=== PATIENT | male | born 1980 | race Caucasian/White ===

== ENCOUNTER 2023-12-26 14:30 | Outpatient (RCR) | payer BC, MEDICAID, SELFPAY | END 2024-04-24 23:59 | disposition home or self-care (01) | PROVIDERS: Visit Provider Family Medicine | DX: M54.9 Dorsalgia, unspecified (principal); Z51.89 Encounter for other specified aftercare | CPT/HCPCS: 97110; 97161; 97530 ==

== ENCOUNTER 2024-11-11 03:50 | Emergency (ER) | payer BC, MEDICAID, SELFPAY ==
[2024-11-11 03:56] VITALS: BP 125/85; PULSE 76; RESP 16; TEMP 36.6; O2SAT 98; BMI 27.0
--- NOTE | 2024-11-11 04:23 | ED_ITS ---
HPI - General Adult General Chief complaint: Back Injury/Pain Stated complaint: lower back pain Time Seen by Provider: 11/11/24 04:06 Source: patient Mode of arrival: ambulatory Limitations: no limitations History of Present Illness HPI narrative: 44-year-old male presents the emergency department with several-day history of lumbar back pain. He awoke in the middle of the night with the pain and had difficulty falling back asleep and decided to come to the emergency department. Tried taking 600 mg of ibuprofen with minimal relief. Has not tried Tylenol. Seem to strain things while shoveling snow a few days ago. No radiculopathy, no loss of bowel or bladder function, no weakness in the legs. No prior history of back surgery. No numbness or tingling. He points to the area around L2/L3 and slightly off to the left as the maximum area of pain. Note trauma or injury. No fever, no other affected areas. Has not previously been evaluated for this by a medical provider but does regularly follow with a chiropractor. Reports that he had an adjustment yesterday which helped a little bit. No prior history of imaging. Past medical history he reports is benign, no major long-term health problems. No long-term prescriptions. Does smoke and does use marijuana weekly or so. ROS is notable for the musculoskeletal symptoms as above, otherwise denies times 12 systems. Related Data Home Medications ?Medication ?Instructions ?Recorded ?Confirmed No Known Home Medications 11/11/24 11/11/24 Allergies Allergy/AdvReac Type Severity Reaction Status Date / Time No Known Drug Allergies Allergy Verified 04/23/24 15:09 PFSH PFS Family History Father Thyroid cancer Diabetes, Onset Age: 52 Social History Smoking Status: Never smoker Do you use any of these nicotine containing products: None Non-prescribed substance use: denies use Exam Const: Vital Signs, click to edit/add: Vital Signs - 24 hr 11/11/24 03:56 Temperature 97.9 F Pulse Rate [Pulse Oximeter] 76 Respiratory Rate 16 Blood Pressure [Le ft Upper Arm] 125/85 Pulse Oximetry 98 Oxygen Delivery Me thod Room Air Documenting provider has reviewed patient's vital signs: yes Common normals: no apparent distress and alert General appearance: cooperative and well kempt HENMT: Common normals: normocephalic Head and scalp: normocephalic Eye: General eye: normal appearance of both eyes Neck & C-Spine: General: normal visual inspection Chest: Common normals: inspection of chest normal Resp: Common normals: normal respiratory effort and no use of accessory muscles Effort & inspection: able to speak in complete sentences : Common normals: no CVA tenderness Bladder/kidney exam: no CVA tenderness Back & Pelvis: Common normals: no CVA tenderness Other: Slight loss of typical lumbar lordosis. No other deformity. There is no point bony tenderness over the spine, mild tenderness over the left paraspinal muscles especially around L2-L3 noted. No SI tenderness. Pain is worsened with extension. He has excellent flexion. Spondylosis testing weakly positive on the left, normal on the right. Straight leg lift negative bilaterally. Normal sensation in both legs, normal strength to flexion, extension at the feet, lower and upper legs. Normal muscle tone. Extremity: Common normals: normal to inspection and no joint enlargement Neuro: Sensorium/orientation: alert Gait (neuro): normal gait Motor exam: strength 5/5 throughout and no movement abnormalities noted Psych: Appearance: well kempt Activity/motor behavior: appropriate eye contact Insight: insight good Judgement: judgment good Skin: Common normals: no rashes or lesions noted General skin exam: no rashes or lesions noted Course Course ED Course: Counseled patient on findings. Does not meet criteria for imaging. Suspect strain. Chronicity of symptoms and onset does not give suspicion for intra- abdominal etiology, kidney stone, etc.. No signs of rash or shingles. No radicular type symptoms or neurological compromise. Patient does want to be able to drive himself home, will give scripts from [facility]. Counseled on prednisone 20 mg p.o. b.i.d. for 5 days, will start in the daylight hour. Flexeril 10 mg b.i.d. p.r.n., will take a doses soon as gets home. Toradol 10 mg up to q.i.d. p.r.n., will take a doses soon as he gets home. Counseled on Tylenol 1000 mg q.6 p.r.n. as well. Counseled that he may also use [id number] sleep aids like melatonin or E or Unisom. Continue with chiropractor. If symptoms have not improved markedly within the next few days, would recommend starting physical therapy and then primary care follow-up in a few weeks if not improving as expected for imaging and additional workup. Patient verbalized understanding and agreement. The alarm symptoms that would warrant ED presentation are reviewed with him. Written instructions provided. Vital Signs Vital signs: Initial Vital Signs Temperature 97.9 F 11/11/24 03:56 Temperature Source Temporal Artery Scan 11/11/24 03:56 Pulse Rate 76 11/11/24 03:56 Respiratory Rate 16 11/11/24 03:56 Blood Pressure 125/85 11/11/24 03:56 Blood Pressure Mean 98 11/11/24 03:56 Blood Pressure Position Sitting 11/11/24 03:56 Pulse Oximetry 98 11/11/24 03:56 Oxygen Delivery Method Room Air 11/11/24 03:56 Vital Signs Temperature 97.9 F 11/11/24 03:56 Pulse Rate 76 11/11/24 03:56 Respiratory Rate 16 11/11/24 03:56 Blood Pressure 125/85 11/11/24 03:56 Pulse Oximetry 98 11/11/24 03:56 Oxygen Delivery Method Room Air 11/11/24 03:56 Temperature 97.9 F 11/11/24 03:56 Pulse Rate 76 11/11/24 03:56 Respiratory Rate 16 11/11/24 03:56 Blood Pressure 125/85 11/11/24 03:56 Pulse Oximetry 98 11/11/24 03:56 Oxygen Delivery Method Room Air 11/11/24 03:56 Discharge Plan Discharge Clinical Impression: Acute lumbar myofascial strain Patient Disposition: Home, Self-Care Condition: Stable Instructions: Low Back Strain (ED) Additional Instructions: As we discussed, there are no signs of any emergent spinal condition today. The nerves and muscles in your legs working fine. These strains can be frustrating but it is important to remember how to properly care for them to avoid significant discomfort. First of all, remember that for sleep you can use melatonin 10 mg at bedtime nightly as needed and or Benadryl 25-50 mg in addition to this if needed to help you sleep. You do have some chronic alignment issues in your back, I do recommend you continue to work at the chiropractor as needed. If symptoms are still bothersome after the 1st of the year, I would strongly recommend that you start physical therapy. If things have not improved after a few weeks of physical therapy, primary care visit and imaging of the low back would be recommended. There are no indications for doing it on an emergent basis based on your exam. If you have sudden loss of bowel or bladder control, inability to move your legs or significant unilateral numbness, you should come to an emergency room. These muscle strains can last for several weeks. I have prescribed a course of prednisone 1 pill 2 times daily. I would recommend that you take it in the morning and early evening, but at least 4 hours before bedtime as it may worsen insomnia if taken to close to bedtime. Try to take it with food or it may upset her stomach. This should make things markedly better within a couple of days. I have given her prescription for Flexeril, also known as cyclobenzaprine. This is a muscle relaxant that you may use up to 2 times daily but it often can be quite sedating, so I recommend that you just save it for nighttime. Consider a half a pill during the day if symptoms are very bothersome. I have also given her prescription for ketorolac, also known as Toradol. Use this instead of ibuprofen as I do find that it is a bit more effective for musc uloskeletal type pain you may use this up to 4 times daily, 1 tablet. When you get home tonight, take 1 of the Flexeril and 1 of the Toradol as well as 1000 mg of Tylenol. If you are not able to fall sleep after 1 hour, take 1-2 [id number] Benadryl or some melatonin as well. You may continue taking Tylenol 1000 mg every 6 hours in addition to the prescribed pain medication. Primary care follow-up in a week if things are not starting to improve. Be careful with heavy lifting as you may worsen your strain. Your at this stage of injury where heat is often better than ice. Hot showers and or baths may help relax the muscles as well. Menthol based rubs may also have benefit. Activity Level: Activity as Tolerated Discharge Diet: Regular Prescriptions: No Action No Known Home Medications Follow Up/Referrals: Herberth Bond Provider [Staff Physician] - Stand Alone Forms: MyHealth Info Instructions
== END 2024-11-11 04:41 | disposition home or self-care (01) ==
PROVIDERS: Emergency Provider Family Medicine
DX: S39.012A Strain of muscle, fascia and tendon of lower back, initial encounter (principal)
CPT/HCPCS: 99283

== ENCOUNTER 2025-09-08 11:57 | Emergency (ER) | payer BC, MEDICAID, SELFPAY ==
[2025-09-08] VITALS (8 sets, daily range): BP systolic 131–166; BP diastolic 80–98; PULSE 82–98; RESP 18; TEMP 36.1; O2SAT 93–99; BMI 26.2
--- OUTSIDE RECORDS SUMMARY | 2025-09-08 11:59 | XMS_ITS | Clinical Summary ---
Author Organization [employer] [facility] Address [address] [place] [id number] Care Team Providers Care Dental Hygiene Professor Name Role Phone Fox Coles MD Primary Care Provider Allergies No known active allergies Medications betamethasone dipropionate 0.05% (DIPROSONE 0.05% CREAM) 0.05 % creamIndications: Hand eczema Apply topically to affected area(s) once daily. Hands only. 45 g Active Active Problems Problem Noted Date Diagnosed Date Mechanical back pain 10/15/2023 Chronic eczema 09/22/2020 Resolved Problems Problem Noted Date Diagnosed Date Resolved Date Dyspepsia 09/22/2020 10/15/2023 Immunizations Immunization Administration Dates Next Due COVID-19 vaccine (Moderna 100mcg/0.5mL) JOSÉ ALFREDO 03/24/2021 COVID-19 vaccine (Pfizer-BioNTech 30mcg/0.3mL) P FJOSÉ 03/03/2021 Tdap 10/15/2023,01/02/2014 Family History Medical History Relation Name Comments Cancer Father uncertain type ? thymus Diabetes Father Heart attack Father after 55 Thyroid cancer Father Cancer-colon No Family History Cancer-prostate No Family History Relation Name Status Comments Father Social History Tobacco Use Types Packs/Day Years Used Date Smoking Tobacco: Every Day Cigarettes 1 28.8 Started: 1996 Smokeless Tobacco: Never Tobacco Cessation:Ready to Q uit: No; Counseling Given: No Alcohol Use Standard Drinks/Week Comments Yes 0 (1 standard drink = 0.6 oz pur e alcohol) PHQ-2 Answer Date Recorded PHQ-2 TOTAL SCORE 0 10/15/2023 Social Connections Answer Date Recorded Do you often feel lonely or isolated from those around you? 0 10/15/2023 Financial Resource Strain Answer Date R ecorded Difficulty of Paying Living Expenses 3 10/15/2023 Difficulty of Paying Living Expenses Not on file 10/15/2023 Food Insecurity Answer Date Recorded Do you worry your food will run out before you are able to buy more? 1 10/15/2023 Transportation Needs Answer Date Record ed Does lack of transportation keep you from medica l appointments? 1 10/15/2023 Does lack of transportation keep you from work, meetings or getting things that you need? 1 10/15/2023 Housing Stability Answer Date Recorded What is your housing situation today? 1 10/15/2023 Sex and Gender Information Value Date Recorded Sex Assigned at Not on file Legal Sex Male 7:25 AM VETERINARY MICROBIOLOGIST Gender Identity Not on file Sexual Orientation Not on file Obstetrics History Last Filed Vital Signs Vital Sign Reading Time Taken Comments Blood Pressure 117/80 03/03/2024 1:15 PM CDT Pulse 75 03/03/2024 1:15 PM CDT Temperature - - Respiratory Rate - - Oxygen Saturation 98% 03/03/2024 1:15 PM CDT Inhaled Oxygen Concentration - - Weight 95.2 kg (209 lb 12.8 oz) 03/03/2024 1:15 PM CDT Height 187 cm (6' 1.62) 10/15/2023 1:55 PM VETERINARY MICROBIOLOGIST Body Mass Index 27.21 10/15/2023 1:55 PM VETERINARY MICROBIOLOGIST Plan of Treatment Upcoming Encounters Date Type Department Care Team (Late st Contact Info) Description 09/15/2025 1:15 PM CDT Office Visit [facility] [address] [place] [address] Fox Coles MD [address] [place] [address] Health Maintenance Due Date Last Done Comments Depression screening for age 12+ 1994 Hepatitis B series for 19+ ( 1 of 3 - 19+ 3-dose series) 2001 Pneumococcal series for age 6-49 (1 of 2 - PCV) 2001 HPV series for age 9-45 (1 - 3-dose SCDM series) 2009 BMI (ht and wt on same day) for age 18+ 10/15/2024 10/15/2023, 09/22/2020 COVID-19 vaccine series ( season) 2025 08/30/2022, 12/09/2021, 03/24/2021, Additional history exists Influenza Vaccine (#1) 2025 Lipids for age 35-44 10/15/2028 10/15/2023, 10/15/2023, 09/22/2020, Additional history exists Tetanus booster 10/15/2033 10/15/2023, 01/02/2014 RSV vaccine for adults or (1 - 1-dose 75+ series) 2057 HIV for age 15-65 Completed 10/15/2023 Hepatitis C screening for ag e 18-79 Completed 10/15/2023 Procedures Procedure Name Priority Date/Time Associated Diagnosis Comments ANTI HIV 1/2 Routine 10/15/2023 2:33 PM VETERINARY MICROBIOLOGIST Screening for HIV (human immunodeficiency virus) ANTI HCV Routine 10/15/2023 2:33 PM VETERINARY MICROBIOLOGIST Need for hepatitis C screening test LDL CHOLESTEROL,DIREC T Routine 10/15/2023 2:33 PM VETERINARY MICROBIOLOGIST Hyperlipidemia, unspecified hyperlipidemia type from Last 3 Months or Most Recently Relevant to Health Maintenance Results * ANTI HCV (10/15/2023 2:33 PM VETERINARY MICROBIOLOGIST) HEPATITIS C ANTIBODY Non-Reacti ve Non-React latanya 10/15/2023 10:38 PM VETERINARY MICROBIOLOGIST [facility] Comment:Please note, per www .CDC.gov: If a patient is known to be at high risk of HCV infection, or is symptomatic, and the physician's suspicion of HCV infection is high, HCV RNA testing is often employed and is of diagnostic value, even after an initial negative anti-HCV test result. Blood BLOOD SPECIMEN / Unknown Venipuncture / Unknown 10/15/2023 2:33 PM VETERINARY MICROBIOLOGIST 10/15/2023 2:34 PM VETERINARY MICROBIOLOGIST Fox Coles MD SEND OUTS Final Result [facility] [address] [place] [address], * ANTI HIV 1/2 (10/15/2023 2:33 PM VETERINARY MICROBIOLOGIST) Pathologist [facility] HIV-1/HIV-2 SCREEN Non-Reacti ve Non-Reacti ve 10/15/2023 10:45 PM VETERINARY MICROBIOLOGIST [facility] Comment:HIV-1 p24 and HIV-1/ HIV-2 Ab Not Detected. Blood BLOOD SPECIMEN / Unknown Venipuncture / Unknown 10/15/2023 2:33 PM VETERINARY MICROBIOLOGIST 10/15/2023 2:34 PM VETERINARY MICROBIOLOGIST us Fox Coles MD SEND OUTS Final Result Performing Organization Address [facility]/ZIP Co de Phone Number [facility] [address] [place] [address], [place] * LDL CHOLESTEROL,DIRECT (10/15/2023 2:33 PM VETERINARY MICROBIOLOGIST) Pathologist [facility] LDL CHOLESTEROL,DI RECT 159 mg/dL 10/15/2023 11:26 PM VETERINARY MICROBIOLOGIST [facility] PROVIDER ORDERED STATUS RANDOM 10/15/2023 11:26 PM VETERINARY MICROBIOLOGIST [facility] Blood BLOOD SPECIMEN / Unknown Venipuncture / Unknown 10/15/2023 2:33 PM VETERINARY MICROBIOLOGIST 10/15/2023 2:34 PM VETERINARY MICROBIOLOGIST Narrative [facility] - 10/15/2023 11:26 PM VETERINARY MICROBIOLOGIST Optimal <100 mg/dl Near Optimal 100-129 mg/dl Borderline High 130-159 mg/dl High 160-189 mg/dl Very High >=190 mg/dl us Fox Coles MD CHEMISTRY Final Result [facility] [address] [place] [address], from Last 3 Months or Most Recently Relevant to Health Maintenance Insurance [facility] MEDICAID Care Teams Dental Hygiene Professor Relationship Specialty Start Date End Date Fox Coles MD [address] [place] [address] PCP - General Family Practice 09/22/20
--- NOTE | 2025-09-08 12:47 | ED.GENADULT ---
HPI - General Adult General Date Seen: 09/08/25 Chief complaint: Flank Pain Stated complaint: Blood in pee/ pain in stomach Time Seen by Provider: 09/08/25 12:29 History of Present Illness HPI narrative: 45-year-old male presenting to the ER today with a 2 day history of right flank pain now with blood in his urine today and increasing nausea this morning. He is generally healthy. No known history of kidney stones. He has been having a little bit discomfort in his right flank and some pain radiating down to his right lower quadrant for the past couple of days. Nothing too severe but pain has been coming and going. No fever. Urination has been normal. No dysuria, urgency, frequency. This morning his pain got a little bit worse and he also noticed some niharika hematuria . He noticed bright red blood in the urine but no clots. Urine flow was not obstructed. He is not having a fever. He is mildly nauseous when his pain was severe but no vomiting. No radiation of pain to his groin or testicles. Bowel movements have been normal. No known injuries. Related Data Home Medications ?Medication ?Instructions ?Recorded ?Confirmed No Known Home Medications 11/11/24 09/08/25 Allergies Allergy/AdvReac Type Severity Reaction Status Date / Time No Known Drug Allergies Allergy Verified 04/06/25 11:47 PFSH PFSH Family History Father Thyroid cancer Diabetes, Onset Age: 52 Social History Smoking Status: Never smoker Do you use any of these nicotine containing products: None Non-prescribed substance use: denies use Exam Narrative: Exam Narrative: Constitutional: Appears well-developed and well-nourished. Alert. Conversant. Non toxic. HENT: Head: Atraumatic. Nose: Nose normal. Mouth/Throat: Oral mucosa is clear and moist. no trismus. Pharynx normal. Tonsils symmetric. No tonsillar enlargement, erythema, or exudate. Eyes: Conjunctivae normal. EOM normal. Pupils equal, round, and reactive to light. No scleral icterus. Neck: Normal range of motion. Neck supple. No tracheal deviation present. Cardiovascular: Normal rate, regular rhythm. No gallop. No friction rub. No murmur heard. Symmetric radial artery pulses Pulmonary/Chest: Effort normal. No stridor. No respiratory distress. No wheezes. No rales. No rhonchi . No tenderness. Abdominal: Soft. Bowel sounds normal. No distension. No mass. Mild right CVA tenderness. No anterior abdominal tenderness. No rebound. No guarding. Musculoskeletal: RUE: Normal range of motion. No tenderness. No deformity LUE: Normal range of motion. No tenderness. No deformity RLE: Normal range of motion. No edema. No tenderness. No deformity LLE: Normal range of motion. No edema. No tenderness. No deformity Lymph: No cervical adenopathy. Neurological: Alert and oriented to person, place, and time. Normal strength. CN II-VII intact. No sensory deficit. GCS eye subscore is 4. GCS verbal subscore is 5. GCS motor subscore is 6. Normal coordination Skin: Skin is warm and dry. No rash noted. No pallor. Normal capillary refill. Psychiatric: Normal mood. Normal affect. Const: Vital Signs, click to edit/add: Vital Signs - 24 hr 09/08/25 12:14 09/08/25 15:16 09/08/25 15:30 Temperature 97 F L Pulse Rate 84 89 Pulse Rate [Pulse Oximeter] 86 Respiratory Rate 18 Blood Pressure Blood Pressure [Ri ght Upper Arm] 166/80 H Pulse Oximetry 97 96 97 Oxygen Delivery Me thod Room Air 09/08/25 15:31 09/08/25 15:45 09/08/25 16:00 Temperature Pulse Rate 98 87 90 Pulse Rate [Pulse Oximeter] Respiratory Rate Blood Pressure 131/97 H Blood Pressure [Ri ght Upper Arm] Pulse Oximetry 99 97 96 Oxygen Delivery Me thod 09/08/25 16:01 09/08/25 16:15 Temperature Pulse Rate 82 91 Pulse Rate [Pulse Oximeter] Respiratory Rate Blood Pressure 140/98 H Blood Pressure [Ri ght Upper Arm] Pulse Oximetry 96 93 Oxygen Delivery Me thod Course Vital Signs Vital signs: Initial Vital Signs Temperature 97 F L 09/08/25 12:14 Temperature Source Temporal Artery Scan 09/08/25 12:14 Pulse Rate 86 09/08/25 12:14 Respiratory Rate 18 09/08/25 12:14 Blood Pressure 166/80 H 09/08/25 12:14 Blood Pressure Mean 108 H 09/08/25 12:14 Pulse Oximetry 97 09/08/25 12:14 Oxygen Delivery Method Room Air 09/08/25 12:14 Vital Signs Temperature 97 F L 09/08/25 12:14 Pulse Rate 86 09/08/25 12:14 Respiratory Rate 18 09/08/25 12:14 Blood Pressure 166/80 H 09/08/25 12:14 Pulse Oximetry 97 09/08/25 12:14 Oxygen Delivery Method Room Air 09/08/25 12:14 Temperature 97 F L 09/08/25 12:14 Pulse Rate 91 09/08/25 16:15 Respiratory Rate 18 09/08/25 12:14 Blood Pressure 140/98 H 09/08/25 16:01 Pulse Oximetry 93 09/08/25 16:15 Oxygen Delivery Method Room Air 09/08/25 12:14 Medications Administered Medications: Discontinued Medications Generic Name Dose Route Start Last Admin Trade Name Freq PRN Reason Stop Dose Admin Sodium Chloride 1,000 mls @ 1,000 mls/hr 09/08/25 13:00 09/08/25 14:25 0.9 % Sodium Chloride 1000 Ml IV 09/08/25 13:59 Infused .Q1H JUDY Infusion Ketorolac Tromethamine 15 mg 09/08/25 12:56 09/08/25 13:39 Ketorolac 15 Mg/Ml Inj IVP 09/08/25 12:57 15 mg ONCE ONE Administration Ondansetron HCl 4 mg 09/08/25 12:56 09/08/25 13:39 Ondansetron 2 Mg/Ml Inj IVP 09/08/25 12:57 4 mg ONCE ONE Administration Medical Decision Making [facility] Narrative Medical decision making narrative: This patient presents with right flank and right-sided abdominal pain pain. Differential Diagnosis considered includes: Ureterolithiasis, UTI, pyelonephritis, AAA, colitis, volvulus, appendicitis, cholecystitis, among others. Urinalysis confirms hematuria but does not show much sign of infection. Laboratory workup is reassuring with normal white count. He is afebrile. Kidney function is normal. Stone protocol CT imaging does not show any obstructing stone but does show a surprising find of a 6 cm lesion lower pole on the right kidney. Renal protocol CT was suggested by Radiology and obtained here in the ER to try to get a better characterization of this lesion. Even after repeat CT imaging, exact nature of the lesion is not clear. Concern is whether not this is a malignancy. Discussed this in detail with the patient and his mother while they were here in the ER. He will need outpatient follow-up and will need MRI (I am not able to get a renal MRI here in the ER today). He will follow-up with the primary care clinic at [facility] within the next couple of days to arrange that outpatient MRI for further characterization. Patient may also need urology follow-up. Next step will be for close follow-up with his primary care for MRI. Precautions for return to the ER reviewed and questions answered. Lab Data Labs: Lab Results 09/08/25 09/08/25 Range/Units 13:10 13:15 WBC 7.71 (4.50-11.00) K/uL RBC 6.31 H (4.30-5.90) m/uL Hgb 18.7 H (13.5-17.5) gm/dL Hct 54.5 H (37.0-53.0) % MCV 86 (80-100) fL MCH 30 (26-34) pg MCHC 34 (32-36) gm/dL RDW Coeff of Yun 13.3 (11.5-15.5) % Plt Count 195 (140-440) K/uL Neut % (Auto) 57.8 (42.0-72.0) % Lymph % (Auto) 27.9 (20-44) % Yates % (Auto) 13.6 H (0.0-11.0) % Eos % (Auto) 0.1 (0.0-7.0) % Baso % (Auto) 0.3 (0.0-3.0) % Neut # (Auto) 4.46 (1.7-7.0) K/uL Lymph # (Auto) 2.15 (0.90-2.90) K/uL Yates # (Auto) 1.00 H (0.00-0.90) K/UL Eos # (Auto) 0.01 (0.00-0.50) K/uL Baso # (Auto) 0.02 (0.00-0.30) K/uL Abs Immat Gran (auto) 0.02 (0.00-0.30) K/uL Imm/Tot Granulo (auto) 0.3 % Sodium 138 (135-149) mmol/L Potassium 4.4 (3.6-5.1) mmol/L Chloride 100 (96-114) mmol/L Carbon Dioxide 27 (20-32) mmol/L Anion Gap 11 (7-15) mEq/L BUN 9 (5-24) mg/dL Creatinine 1.0 (0.5-1.5) mg/dL Estimated Creat Clear 110.74 Estimated GFR 96 ml/min Glucose 107 (60-115) mg/dL Calcium 9.6 (8.4-10.6) mg/dL Total Bilirubin 0.9 (0.1-1.5) mg/dL AST 33 (12-35) U/L ALT 40 (4-50) U/L Alkaline Phosphatase 77 (40-150) U/L Total Protein 7.8 (6.0-8.3) g/dL Albumin 4.7 (3.3-5.0) g/dL Urine Color Red A (Yellow) Urine Appearance Cloudy A (Clear) Urine pH 5.5 (5.0-8.5) Ur Specific [place] >= 1.030 (1.000-1.030) Urine Protein 3+ A (Negative) Urine Glucose (UA) Negative (Negative) Urine Ketones 1+ A (Negative) Urine Blood 3+ A (Negative) Urine Nitrite Negative (Negative) Urine Bilirubin 1+ A (Negative) Urine Urobilinogen 0.2 (0.2-1.0) Ur Leukocyte Esterase Negative (Negative) Urine RBC >100 A (0-2) Urine WBC 0-2 (0-5) Ur Squamous Epith Cells None (None-Few) Urine Bacteria Moderate A (None) Imaging Data CT scan - abdomen: Attestation: I have reviewed the pertinent imaging results. Radiologist's impression: CT abdomen-stone protocol without contrast FINDINGS: Lower chest: The visualized lower lungs are aerated. No pleural or pericardial effusion. ABDOMEN: Liver: Normal attenuation. Gallbladder and biliary: Normal gallbladder without radiopaque stone. Normal caliber bile ducts. Spleen: Normal size and attenuation. Pancreas: The noncontrast pancreas is homogeneous in attenuation without peripancreatic inflammatory changes or ductal dilatation. Adrenal glands: Normal adrenal glands. Kidneys and ureters: No nephrolithiasis. No hydroureteronephrosis. Interpolar/inferior pole right renal mass measuring up to 6 cm. GI tract: The stomach is relatively decompressed. Normal caliber small and large bowel loops. Normal appendix. Vascular structures: Normal caliber abdominal aorta. Lymph nodes: No lymphadenopathy in the abdomen or pelvis by size criteria. Peritoneum: No free air, free fluid, or focal drainable fluid collection. PELVIS: Genitourinary system: Urinary bladder is decompressed. Normal-sized prostate. SKELETAL STRUCTURES AND SOFT TISSUES: No suspicious lytic or blastic lesions. IMPRESSION: 6 cm right renal mass. Recommend further evaluation with dedicated renal protocol CT. No nephrolithiasis or hydroureteronephrosis. CT abdomen-renal protocol with contrast IMPRESSION: Re-demonstration of indeterminate 6 centimeter right inferior pole complex cystic lesion, with subtle adjacent inflammatory stranding, but without definite measurable enhancement. Constellation of findings could suggest possible Bosniak 2F/3 lesion. Patient will likely benefit from nonemergent renal mass protocol MRI for more definitive characterization. Recommend correlation with urinalysis to exclude superimposed infection given subtle adjacent inflammatory stranding. Discharge Plan Discharge Clinical Impression: Mass of right kidney Patient Disposition: Home, Self-Care Condition: Stable Instructions: Flank Pain (ED) Additional Instructions: As we discussed, please come back to the ER right away if you are having problems, especially worsening or severe pain, high fever, uncontrolled vomiting, or dehydration. It is extremely important for you to follow-up with your regular doctor the [facility] within the next 3-5 days. Call the clinic today to arrange an ER follow-up visit. Ask your doctor to help arrange an MRI of your kidney to get further assessment on the mass that was detected today affecting your right kidney. You may also need further follow-up with a urologist who is a kidney specialist. Please see your primary care provider first. Prescriptions: No Action No Known Home Medications Follow Up/Referrals: Provider,Not a Local [Primary Care Provider, Family Practice] Stand Alone Forms: [employer] Info Instructions
--- NOTE | 2025-09-08 12:48 | CRLHL7_ITS ---
For Patients: As a result of the Century Cures Act, medical imaging exams and procedure reports are released immediately into your electronic medical record. You may view this report before your referring provider. If you have questions, please contact your health care provider. INDICATION: Right flank pain, hematuria. TECHNIQUE: CT abdomen and pelvis without contrast. COMPARISON: None. FINDINGS: Lower chest: The visualized lower lungs are aerated. No pleural or pericardial effusion. ABDOMEN: Liver: Normal attenuation. Gallbladder and biliary: Normal gallbladder without radiopaque stone. Normal caliber bile ducts. Spleen: Normal size and attenuation. Pancreas: The noncontrast pancreas is homogeneous in attenuation without peripancreatic inflammatory changes or ductal dilatation. Adrenal glands: Normal adrenal glands. Kidneys and ureters: No nephrolithiasis. No hydroureteronephrosis. Interpolar/inferior pole right renal mass measuring up to 6 cm. GI tract: The stomach is relatively decompressed. Normal caliber small and large bowel loops. Normal appendix. Vascular structures: Normal caliber abdominal aorta. Lymph nodes: No lymphadenopathy in the abdomen or pelvis by size criteria. Peritoneum: No free air, free fluid, or focal drainable fluid collection. PELVIS: Genitourinary system: Urinary bladder is decompressed. Normal-sized prostate. SKELETAL STRUCTURES AND SOFT TISSUES: No suspicious lytic or blastic lesions. IMPRESSION: 6 cm right renal mass. Recommend further evaluation with dedicated renal protocol CT. No nephrolithiasis or hydroureteronephrosis. Please note that all CT scans at this facility use dose modulation, iterative reconstruction, and/or weight-based dosing when appropriate to reduce radiation dose to as low as reasonably achievable. Dictated by Bill Thomas MD @ 09/08/2025 1:09:15 PM (Electronically Signed)
[2025-09-08 13:25] LABS: Hematocrit* 54.5 % (37.0-53.0); Hemoglobin* 18.7 gm/dL (13.5-17.5); Immature Granulocytes Abs Auto 0.02 K/uL (0.00-0.30); Immature Granulocytes Pct Auto 0.3 %; Lymphocytes Absolute Auto 2.15 K/uL (0.90-2.90); Mean Corpuscular HGB Conc 34 gm/dL (32-36); Mean Corpuscular Hemoglobin 30 pg (26-34); Mean Corpuscular Volume 86 fL (80-100); RDW Coefficient of Variation % 13.3 % (11.5-15.5); Red Blood Count* 6.31 m/uL (4.30-5.90); White Blood Count* 7.71 K/uL (4.50-11.00)
[2025-09-08 13:28] LABS: Slide Review Reflex No
[2025-09-08 13:34] LABS: Appearance Urine Cloudy (Clear)
[2025-09-08] MEDS: ONDANSETRON 2 MG/ML inj 4 MG IVP (13:39)
[2025-09-08 13:43] LABS: Chloride* 100 mmol/L (96-114)
[2025-09-08 13:44] LABS: Albumin* 4.7 g/dL (3.3-5.0); Potassium* 4.4 mmol/L (3.6-5.1); Sodium* 138 mmol/L (135-149)
[2025-09-08 13:46] LABS: Alanine Aminotransferase* 40 U/L (4-50); Anion Gap 11 mEq/L (7-15); Aspartate Amino Transferase* 33 U/L (12-35); Blood Urea Nitrogen* 9 mg/dL (5-24); Carbon Dioxide* 27 mmol/L (20-32); Creatinine* 1.0 mg/dL (0.5-1.5); Est. Creatinine Clearance* 110.74; Estimated Glomerular Filt Rate 96 ml/min
[2025-09-08 13:47] LABS: Alkaline Phosphatase* 77 U/L (40-150); Bilirubin Total* 0.9 mg/dL (0.1-1.5); Calcium* 9.6 mg/dL (8.4-10.6); Glucose* 107 mg/dL (60-115); Total Protein* 7.8 g/dL (6.0-8.3)
--- NOTE | 2025-09-08 14:27 | CRLHL7_ITS ---
For Patients: As a result of the Century Cures Act, medical imaging exams and procedure reports are released immediately into your electronic medical record. You may view this report before your referring provider. If you have questions, please contact your health care provider. INDICATION: Indeterminate right renal mass. TECHNIQUE: CT abdomen acquired with 100 cc Omnipaque 350 IV contrast in the portal venous and delayed phases. COMPARISON: September 08, 2025. FINDINGS: Lower chest: Unremarkable. Liver: Unremarkable. Normal in size and attenuation. No suspicious masses. Gallbladder and bile ducts: Unremarkable. No stones or inflammation. No biliary dilatation. Pancreas: Unremarkable. No mass or inflammation. Spleen: Unremarkable. Normal in size. No masses. Adrenal glands: Unremarkable. No nodules. Kidneys: Re-demonstration of 6 centimeter right inferior pole complex cystic lesion, with subtle adjacent inflammatory stranding, but without definite measurable enhancement. No stones, or hydronephrosis. GI tract: Unremarkable. Vasculature: Abdominal aorta is normal in caliber. Mesenteric arteries are patent. Lymph nodes: No lymphadenopathy. Peritoneum/Abdominal Wall: Unremarkable. No sign of mass or infiltration. No free air or significant free fluid. Bones: Unremarkable for age. IMPRESSION: Re-demonstration of indeterminate 6 centimeter right inferior pole complex cystic lesion, with subtle adjacent inflammatory stranding, but without definite measurable enhancement. Constellation of findings could suggest possible Bosniak 2F/3 lesion. Patient will likely benefit from nonemergent renal mass protocol MRI for more definitive characterization. Recommend correlation with urinalysis to exclude superimposed infection given subtle adjacent inflammatory stranding. Please note that all CT scans at this facility use dose modulation, iterative reconstruction, and/or weight-based dosing when appropriate to reduce radiation dose to as low as reasonably achievable. Dictated by Vini Crow MD @ 09/08/2025 3:18:35 PM (Electronically Signed)
== END 2025-09-08 16:23 | disposition home or self-care (01) ==
PROVIDERS: Emergency Provider Emergency Medicine
DX: N28.9 Disorder of kidney and ureter, unspecified (principal)
CPT/HCPCS: 36415; 74176; 74177; 80053; 81001; 85025; 87086; 96361; 96374; 96375; 99283; 99284; 99285; J1885; J2405; J7030; Q9967